=== PATIENT | male | born 1965 | race Caucasian/White ===

== ENCOUNTER 2016-12-14 08:50 | Observation (INO) | payer BC ==
[2016-12-13 10:48] LABS: HEMATOCRIT 47.4 % (40.0-51.0); HEMOGLOBIN 15.6 g/dL (13.6-17.8)
[2016-12-13 11:01] LABS: BUN (BLOOD UREA NITROGEN) 19 MG/DL (6-23); CALCIUM, SERUM 9.6 MG/DL (8.5-10.4); CHLORIDE, SERUM 105 MMOL/L (96-112); CO2 (CARBON DIOXIDE) 29 MMOL/L (24-34); CREATININE 1.01 MG/DL (0.70-1.30); GFR AFRICAN AMERICAN 101 ML/MIN (>=60); GFR NON AFRICAN AMERICAN 87 ML/MIN (>=60); GLUCOSE, SERUM 89 MG/DL (60-99); POTASSIUM, SERUM 4.1 MMOL/L (3.5-5.3); SODIUM, SERUM 140 MMOL/L (135-148)
[~2016-12-14] VITALS: Ht 175.3 cm; Wt 112.0 kg
--- NOTE | ~2016-12-14 | OP ---
Record Of Operation [facility] [address] [place]. [address] NAME: ELENA GUTIERREZ JR : 69 STATUS : DIS Anthony PAT#: [id number] AGE: 51 ADM/REG DATE : 12/14/16 MR#: [id number] REPORT SERV DATE: 12/18/16 DICTATED BY: LEANDRO ALEXANDER II DATE: 12/18/16 REPORT STATUS : Draft TRANSCRIBED BY: MODJefry DATE: 12/18/16 DATE OF PROCEDURE: 12/14/2016 PREOPERATIVE DIAGNOSES: 1. 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 2. Bilateral upper extremity radiculopathy. 3. Cord compression and foraminal nerve root compression bilaterally. POSTOPERATIVE DIAGNOSES: 1. 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 2. Bilateral upper extremity radiculopathy. 3. Cord compression and foraminal nerve root compression bilaterally. PROCEDURE: 1. C4-C5 anterior interbody arthrodesis. 2. Application of prosthetic device, C4-5. 3. Anterior instrumentation, C4-C5. 4. Use of allograft substitute and bone marrow aspirate. 5. Use of the microscope. FLUIDS: 1200 mL LR. ESTIMATED BLOOD LOSS: 40 mL. DRAIN: One. COMPLICATIONS: No complications. ANTIBIOTIC: Preoperatively. IMPLANTS: [employer] Cure plate. 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 We discussed the pros and cons of surgery as well as the rates of success versus failure of the surgery to decrease neck pain and arm symptoms respectively. We did discuss the primary goal of surgery was to decrease the cord compression and prevent cord damage. We discussed other risks, such as difficulty swallowing, vocal cord paralysis, and hematoma. DESCRIPTION OF PROCEDURE: After informed consent was obtained, the patient was brought to the operating room at his request and general anesthesia achieved. He was placed in the supine position, and the neck and iliac crest were prepped and draped in a sterile fashion. At this point, 5 mL of bone marrow were aspirated from the right iliac crest followed by right-sided longitudinal incision. The interval was explored. The deep cervical fascia incised. The previous hardware was identified. At this point, the deep retractors were placed and the [place] pin placed into C4 and into C5. Gentle distraction was performed. Record Of Operation [facility] [address] [place]. [address] NAME: ELENA GUTIERREZ JR : 69 STATUS : DIS Anthony PAT#: [id number] AGE: 51 ADM/REG DATE : 12/14/16 MR#: [id number] REPORT SERV DATE: 12/18/16 DICTATED BY: LEANDRO ALEXANDER II DATE: 12/18/16 REPORT STATUS : Draft TRANSCRIBED BY: VA DATE: 12/18/16 The microscope was then brought into place. Under microscopic visualization, the knife was then used to incise the anulus and the diskectomy completed with the pituitary rongeurs, [place] rongeurs, and the curettes. The endplates were now denuded of their cartilage with the high-speed bur and the curved curettes. Punctate bleeding bone was identified on both endplates. At this point, again under microscopic visualization, the posterior longitudinal ligament was removed and the spinal cord well decompressed, including the exiting nerve roots. The exiting nerve roots were now able to be seen at their takeoff point. The nerve hook was now easily passed out bilateral foramen. We at this point had to remove additional posterior osteophyte to better decompress the cord. At this point, the disk herniation component had been removed to now include the posterior osteophytes. At this point, the area was irrigated followed by trialing of the prosthetic device. The prosthetic device was then placed at C4-5. This contained allograft substitute and bone marrow aspirate. Excellent fit was obtained. Next, the separate plate and screw construct was chosen and placed. Two screws were placed into C4 and C5. Excellent fit was obtained. This was the [employer] Cure plate. At this point, with the fluoroscopy now having confirmed acceptable placement of the implants, the area was now inspected for hemostasis. The soft tissues were hemostatic. There was some mild cancellous bone bleeding for which a deep drain was placed. Standard closure was performed. The patient was then extubated and transferred to PACU in stable condition. At this point, I spoke with the family postoperatively and discussed overnight stay and discussed the overall recovery once again. MIKE/VA Leandro Alexander II, M.D. / [id number] CC: Dacia Marshall II, M.D.
[~2016-12-14 08:50] MED LIST: ADVAIR250 INH; ALEVE220 MG PO; COZAAR100 MG PO; CYANO1000T PO; CYMBALTA30 PO; HYDROCHLOROT25 MG PO; LEVAQUIN750 MG PO; LOFIB160 PO; LOFIBRA160 MG PO; MEDROLPAK4 PO; NEXIUM40 PO; PCET PO; PRILO PO; SIMVASTATIN; SINGULAIR1 PO; TRICOR145 PO; V5 PO; ZANTAC150 MG PO; ZOL100 PO
[2016-12-15] MEDS ORDERED: MEDROLPAK4 PO (15:20)
[2016-12-15] MEDS ORDERED: V5 PO (15:20)
[2016-12-15] MEDS ORDERED: PERCOCET 10/3251 TAB PO (15:20)
== END 2016-12-15 17:49 | disposition home or self-care (01) ==
LOC: ENRESERVDT → ENRESERVTM → ENRESERV → SDC 08:50 → SDC/OF 13:45 → 3SO 15:49
PROVIDERS: Orthopaedic Surgery
PROC: 0RG10A0 Fusion of Cervical Vertebral Joint with Interbody Fusion Device, Anterior Approach, Anterior Column, Open Approach (ICD-10-PCS; principal; 2016-12-14 10:15)
DX: M50.121 Cervical disc disorder at C4-C5 level with radiculopathy (principal); G95.20 Unspecified cord compression; K21.9 Gastro-esophageal reflux disease without esophagitis; J45.909 Unspecified asthma, uncomplicated; I10 Essential (primary) hypertension; E78.00 Pure hypercholesterolemia, unspecified; F17.210 Nicotine dependence, cigarettes, uncomplicated; Z98.1 Arthrodesis status; Z98.890 Other specified postprocedural states; Z87.442 Personal history of urinary calculi; Z79.899 Other long term (current) drug therapy
CPT/HCPCS: 76000; 80048; 82962; 85014; 85018; 87641; 88304; 88311; 93005; 96374; 96375; 96376; A9270-GY; C1713; G0378; J0360; J0690; J2250; J2270; J2405; J2710; J3010